=== PATIENT | female | born 1990 | race Caucasian/White ===

== ENCOUNTER 2025-03-03 20:03 | Inpatient (IN) | payer BC ==
[2025-03-03] MEDS ORDERED: HYDROcodone/Acetaminophen 5/325 mg Tablet PO PRN ×2 (20:15)
[2025-03-03] MEDS ORDERED: hydrALAZINE 20 MG/ML VIAL SLOW IVP PRN (20:15)
[2025-03-03] MEDS ORDERED: Carboprost 250 MCG/ML AMP IM PRN (20:15)
[2025-03-03] MEDS ORDERED: Diphenoxylate HCl/Atropine Tablet PO PRN ×2 (20:15)
[2025-03-03] MEDS ORDERED: Calcium Gluc 4.6 MEQ/10 ML (100 MG/ML) SLOW IVP PRN (20:15)
[2025-03-03] MEDS ORDERED: Ibuprofen 800 MG TAB PO PRN (20:15)
[2025-03-03] MEDS ORDERED: Tranexamic Acid 1,000 MG/10 ML VIAL IVP PRN (20:15)
[2025-03-03] MEDS ORDERED: Lidocaine 1% (PF) 30 ML VIAL SC PRN (20:15)
[2025-03-03] MEDS ORDERED: Oxytocin 30 units/NS 500 ML 500 ML IV SCH ×2 (20:15)
[2025-03-03] MEDS ORDERED: Acetaminophen 500 MG TAB PO PRN (20:15)
[2025-03-03 20:45] VITALS: BMI 31.6
[2025-03-03 21:20] LABS: Hematocrit 32.7 % (34.9-44.5); Hemoglobin 11.0 g/dL (12.0-15.5); Mean Corpuscular Hemoglobin 28.4 pg (27.0-33.0); Mean Corpuscular Volume 84.3 fL (81.6-98.3); Platelet Count 299 10x3/uL (150-450); Red Blood Cell (RBC) Count 3.88 10x6/uL (3.90-5.03); White Blood Cell (WBC) Count 13.46 10x3/uL (3.5-10.5)
[2025-03-03 21:38] LABS: ALT (SGPT) 16 U/L (Less than 34); AST (SGOT) 20 U/L (11-34); Albumin 2.9 g/dL (3.1-4.5); Alkaline Phosphatase 111 U/L (40-110); Anion Gap 13 mmol/L (10-20); BUN (Urea Nitrogen) 20 mg/dL (7.0-18.7); Bilirubin, Total 0.2 mg/dL (0.3-1.2); Calc. Creatinine Clearance 153 mL/min (70-130); Calcium 8.5 mg/dL (7.8-10.44); Carbon Dioxide 18 mmol/L (22-29); Chloride 108 mmol/L (98-107); Globulin 3.4 g/dL (2.4-3.5); Glucose 85 mg/dL (70-105); Potassium 4.1 mmol/L (3.5-5.1); Sodium 135 mmol/L (136-145)
[2025-03-03 21:58] LABS: Syphilis Antibody Index 0.09 S/CO (<1.00 Non-Reactive)
[2025-03-03 22:08] LABS: Protein, Urine Random Quant 59.0 mg/dL (1-14)
[2025-03-03 22:32] LABS: Hep B Surf Ag - L&D Non-Reactive S/CO (NonReactive)
[2025-03-04] MEDS ORDERED: Calcium Gluc 4.6 MEQ/10 ML (100 MG/ML) SLOW IVP PRN (01:26)
[2025-03-04] MEDS ORDERED: hydrALAZINE 20 MG/ML VIAL SLOW IVP PRN (01:26)
[2025-03-04] MEDS: Magnesium Sulfate 20 gm/500 ml 20 GM/500 ML BAG IVPB SCH (01:46)
[2025-03-04] MEDS: Magnesium Sulfate 20 gm/500 ml 20 GM/500 ML BAG ONE (03:37)
[2025-03-04] MEDS: fentaNYL/Ropivacaine Epidural 100 ML ONE (05:16)
[2025-03-04] MEDS ORDERED: diphenhydrAMINE 50 MG/ML VIAL IVP PRN (05:58)
[2025-03-04] MEDS ORDERED: Ondansetron PF 4 MG/2 ML Vial IVP PRN ×2 (05:58→18:10)
[2025-03-04] MEDS ORDERED: Acetaminophen 325 MG TAB PO PRN (05:58)
[2025-03-04] MEDS ORDERED: Communication Order-Pharmacy FS SCH (06:00)
[2025-03-04] MEDS ORDERED: fentaNYL 2 mcg/Ropivacaine 0.2% Epidural 100 ML CADD EPIDURAL SCH (06:00)
[2025-03-04] MEDS: Ondansetron PF 4 MG/2 ML Vial IVP PRN (11:35)
[2025-03-04] MEDS: CEFAZOLIN 2 GM VIAL ONE (14:59)
[2025-03-04 15:41] LABS: Analyzer IN Cardio CS NICU; RapidComm Collect By NUR.SM17
[2025-03-04 15:43] LABS: Analyzer IN Cardio CS NICU; RapidComm Collect By NUR.SM17; pH (Cord, venous) 7.273 (7.250-7.350)
[2025-03-04] MEDS ORDERED: Meperidine HCl/PF 25 MG (1 mL) VIAL SLOW IVP PRN (18:10)
[2025-03-05] MEDS: Ketorolac Tromethamine 30 MG (1 mL) VIAL IVP SCH (06:02)
[2025-03-05 06:09] LABS: Hematocrit 30.6 % (34.9-44.5); Hemoglobin 10.2 g/dL (12.0-15.5); Mean Corpuscular Hemoglobin 28.3 pg (27.0-33.0); Mean Corpuscular Volume 85.0 fL (81.6-98.3); Platelet Count 260 10x3/uL (150-450); Red Blood Cell (RBC) Count 3.60 10x6/uL (3.90-5.03); White Blood Cell (WBC) Count 17.46 10x3/uL (3.5-10.5)
[2025-03-05] MEDS ORDERED: hydrALAZINE 20 MG/ML VIAL SLOW IVP PRN (08:09)
[2025-03-05] MEDS ORDERED: Boostrix 0.5 ML (Tdap) VIAL (>/=7 yrs of age) IM ONE (08:09)
[2025-03-05] MEDS ORDERED: Bisacodyl 10 MG SUPP PR PRN (08:09)
[2025-03-05] MEDS: Ibuprofen 800 MG TAB PO SCH (14:36)
[2025-03-05] MEDS: Ketorolac Tromethamine 30 MG (1 mL) VIAL ONE (17:03)
[2025-03-05] MEDS: Azithromycin 500 MG VIAL ONE (18:41)
[2025-03-05] MEDS: Oxytocin 10 UNITS/ML VIAL ONE (18:41)
[2025-03-05] MEDS: Dexamethasone 10 MG/ML VIAL ONE (18:42)
[2025-03-05] MEDS: PHENYLEPHRINE-NS 100 MCG/ML 10 ML SYRINGE ONE (18:42)
[2025-03-05] MEDS: Ondansetron PF 4 MG/2 ML Vial ONE (18:42)
[2025-03-05] MEDS ORDERED: Lidocaine 2% MPF 10 ML AMP (For Epidural Use) ONE (19:10)
[2025-03-05] MEDS ORDERED: Bupivacaine 0.25% HCL 30 ML VIAL ONE (19:10)
[2025-03-05] MEDS ORDERED: Bupivacaine HCl 0.5%/Epinephrine 1:200,000/PF 30 ml Vial ONE (19:10)
[2025-03-05] MEDS: HYDROcodone/Acetaminophen 5/325 mg Tablet PO PRN (23:51)
[2025-03-05] MEDS: Simethicone Chewable 80 MG TAB PO PRN (23:51)
[2025-03-06 05:46] LABS: Hematocrit 30.5 % (34.9-44.5); Hemoglobin 9.9 g/dL (12.0-15.5); Mean Corpuscular Hemoglobin 28.1 pg (27.0-33.0); Mean Corpuscular Volume 86.6 fL (81.6-98.3); Platelet Count 242 10x3/uL (150-450); Red Blood Cell (RBC) Count 3.52 10x6/uL (3.90-5.03); White Blood Cell (WBC) Count 15.10 10x3/uL (3.5-10.5)
[2025-03-06] MEDS: HYDROcodone/Acetaminophen 5/325 mg Tablet PO PRN (08:01)
[2025-03-06] MEDS: Ferrous Sulfate 325 MG TAB PO SCH (08:26)
[2025-03-06] MEDS: NIFEdipine XL 30 MG ER.TAB PO SCH (13:44)
[2025-03-07] MEDS: NIFEdipine XL 30 MG ER.TAB PO SCH (07:35)
[2025-03-07 07:36] VITALS: BP 139/92
[2025-03-07 08:55] VITALS: TEMP 98.9
== END 2025-03-07 12:40 | disposition home or self-care (01) | DRG 788 ==
LOC: CSHLD 20:03 → CSHPP 03-05 17:10
PROVIDERS: ADMIT Obstetrics & Gynecology; ATTEND Obstetrics & Gynecology
PROC: 10D00Z1 Extraction of Products of Conception, Low, Open Approach (ICD-10-PCS; principal; 2025-03-04)
DX: O14.14 Severe pre-eclampsia complicating childbirth (principal); Z37.0 Single live birth; Z79.899 Other long term (current) drug therapy; Z3A.37 37 weeks gestation of pregnancy
CPT/HCPCS: 36415; 51702; 80053; 82570; 82805; 84156; 85027; 86780; 86850; 86900; 86901; 87340; J0665; J1100; J1885; J2274; J2405; J2550; J2590; J3010; J3475; J7120